=== PATIENT | female | born 1990 | race Caucasian/White ===

== ENCOUNTER 2016-11-03 08:52 | Emergency (ER) | payer OTHER ==
[~2016-11-03] VITALS: Ht 170.2 cm; Wt 86.2 kg
--- NOTE | ~2016-11-03 | CR124 ---
[facility] A Service of [facility] RADIOLOGY TEXT RESULTS PATIENT: STEPHANIE RODRIGUES LOCATION: [facility] : 88 UNIT #: [id number] AGE: [address]: Trisha White SEX: F ORDER DR: [id number] [facility] [address] [place], [place] [address] [id number] E MR#: [id number] Acc #: [id number] NAME: STEPHANIE RODRIGUES : 1990 SEX: F STUDY DATE/TIME: 11/03/2016 9:08 UNIT: [facility] ROOM: STUDY DESCRIPTION: CR Foot 2 Views Rt Attending Physician: Trisha White P.A.-C. Ordering Physician: Trisha White P.A.-C. [facility]AG[facility] REPORT This report is preliminary unless electronic signature is present EXAM Right foot, 11/03/2016. INDICATIONS Pain and swelling in the fifth digit after stubbing toe on a couch edge today. FINDINGS 3 views of the right foot were obtained. There is a fracture at the base of the fifth proximal phalanx which extends into the diaphysis. There is slight valgus angulation. No significant displacement is seen. The rest of the foot is normal. IMPRESSION Fracture at the base of the fifth proximal phalanx with mild valgus angulation. No significant displacement. Dictated by... Jair Mckinney Jr., M.D. THIS IS AN ELECTRONICALLY VERIFIED REPORT Jair Mckinney Jr., M.D. at 11/03/2016 5:05 PM DENISE/coty TD: 11/03/2016 14:59 JOB #: [id number] MEDICAL IMAGING REPORT Page 1 of 1 COPY
[~2016-11-03 08:52] MED LIST: ATARAX PO; MEDROL4 MG/DOSE- PO
== END 2016-11-03 09:46 | disposition home or self-care (01) ==
LOC: CED 08:52
DX: S92.511A Displaced fracture of proximal phalanx of right lesser toe(s), initial encounter for closed fracture (principal); Z88.0 Allergy status to penicillin; Z88.8 Allergy status to other drugs, medicaments and biological substances; X58.XXXA Exposure to other specified factors, initial encounter; Y92.009 Unspecified place in unspecified non-institutional (private) residence as the place of occurrence of the external cause
CPT/HCPCS: 29405; 73620; 99283

== ENCOUNTER 2016-12-06 09:05 | Emergency (ER) | payer OTHER ==
[~2016-12-06] VITALS: Ht 170.2 cm; Wt 83.9 kg
[2016-12-06 09:52] LABS: INFLUENZA A NEG (NEG); INFLUENZA B NEG (NEG)
[2016-12-06 10:02] LABS: BASOPHIL% 0.3 % (0-2.5); DIFF IND YES; EOSINOPHIL% 0.3 % (0.0-7.0); HEMATOCRIT 36.2 % (35.0-45.0); HEMOGLOBIN 12.3 gm/dL (12.0-16.0); LYMPHOCYTE# 1.6 X10e3 (1.0-3.5); LYMPHOCYTE% 10.9 % (17.0-45.0); MEAN CORPUSCULAR HEMOGLOBIN 26.1 PG (28-34); MEAN CORPUSCULAR HGB CONC 33.9 g/dL (30-36); MEAN PLATELET VOLUME 7.7 FL (6.5-11.5); MONOCYTE# 1.2 X10e3 (0-1.0); MONOCYTE% 8.1 % (3.0-12.0); NEUTROPHIL# 12.1 X10e3 (1.5-7.1); NEUTROPHIL% 80.4 % (40-75); PLATELET COUNT 277 X10e3 (140-420); RED BLOOD COUNT 4.71 X10e (3.90-5.30); RED CELL DISTRIBUTION WIDTH 13.9 % (11.0-15.5); WHITE BLOOD COUNT 15.1 X10e3 (4.0-10.5)
[2016-12-06 10:37] LABS: HYPOCHROMIA SL; MICROCYTOSIS SL; PLATELET ESTIMATE NORMAL (NORMAL)
[2016-12-06 10:51] LABS: CALCIUM SERUM 8.8 mg/dL (8.4-10.2); CREATININE SERUM 0.5 mg/dL (0.6-1.4); GLOM FILT RATE Estimated 132.7 mL/min (>60); POTASSIUM 3.7 mmol/L (3.5-5.1)
== END 2016-12-06 10:58 | disposition home or self-care (01) ==
LOC: CED 09:05 → CFTX 09:05
PROVIDERS: Physician Assistant
DX: J02.0 Streptococcal pharyngitis (principal); Z98.51 Tubal ligation status
CPT/HCPCS: 36415; 80048; 85025; 86308; 87804; 87880; 96372; 99283